=== PATIENT | female | born 1940 | race Caucasian/White ===

== ENCOUNTER 2016-10-09 07:33 | Emergency (ER) | payer MEDICARE, OTHER ==
[2016-10-09 07:50] VITALS: O2SAT 96
[2016-10-09] MEDS ORDERED: Sodium Chloride 0.9% 1000 ML 1,000 ML IV STA (07:52)
[2016-10-09] MEDS ORDERED: Sodium Chloride 0.9% 1000 ML 1,000 ML ONE ×2 (07:57→09:06)
--- NOTE | 2016-10-09 08:03 | ERPHSYRPT ---
- History of Present Illness Time Seen by Provider: 10/09/16 08:00 Source: patient, family, EMS Patient Subjective Stated Complaint: AWOKE THIS AM WITH DIAPHORESIS, WEAKNESS. BLACK STOOL THIS AM. Triage Nursing Assessment: TO ROOM PER EMS COT. SKIN W/D, PALE. RESP NONLABORED. ABD SOFT, NONTENDER. DENIES ANY PAIN. DOES HAVE SOME NAUSEA. Physician History: 76-year-old female with significant past medical history of hypertension. Was in her usual state of health at home. She went to bathroom and found to have a large amount of blood in her bowel movement and then she passed out. So her daughter called EMS and patient was brought into the emergency room. When patient was wanting to the emergency room. Patient was alert awake oriented to time, place and person and was denying any other symptoms but some weakness. This is the first episode of bleeding per rectum. Timing/Duration: today Associated Symptoms: denies symptoms Allergies/Adverse Reactions: adhesive tape Allergy (Intermediate, Verified 10/09/16 07:44) Rash latex Allergy (Intermediate, Verified 10/09/16 07:44) Rash Home Medications: Lisinopril/Hydrochlorothiazide [Lisinopril-Hctz 10-12.5 mg Tab] 20 mg PO BID 01/17 [History] Metoprolol Tartrate 25 mg [Lopressor 25MG Tab] 50 mg PO BID 08/12/12 [History ] Cholecalciferol (Vitamin D3) [Vitamin D-3] 2,000 unit PO DAILY 03/18/15 [History ] Fish Oil/Borage/Flax/Om3,6,9#1 [[place] 3-6-9 1,200 mg Softgel] 1,200 mg PO HS 07/21 [History] Multivits,Stress Formula [Stress Formula] 1 each PO DAILY 03/18/15 [History] Potassium Chloride [K-Dur] 20 meq PO DAILY 03/18/15 [History] Atorvastatin Calcium [Lipitor] 10 mg PO HS 10/09/16 [History] Magnesium Oxide 400 mg [Mag-Ox 400] 400 mg PO DAILY 10/09/16 [History] Nifedipine [Procardia Xl] 30 mg PO DAILY 10/09/16 [History] Rivaroxaban [Xarelto] 20 mg PO HS 03/05/17 [History] Hx Tetanus, Diphtheria Vaccination/Date Given: No Hx Influenza Vaccination/Date Given: Yes Hx Pneumococcal Vaccination/Date Given: Yes Immunizations Up to Date: No - Review of Systems Constitutional: No Fever, No Chills Eyes: No Symptoms Ears, Nose, & Throat: No Symptoms Respiratory: No Cough, No Dyspnea Cardiac: No Chest Pain, No Edema, No Syncope Abdominal/Gastrointestinal: Hematochezia, No Abdominal Pain, No Nausea, No Vomiting, No Diarrhea Genitourinary Symptoms: No Dysuria Musculoskeletal: No Back Pain, No Neck Pain Skin: No Rash Neurological: No Dizziness, No Focal Weakness, No Sensory Changes Psychological: No Symptoms Endocrine: No Symptoms All Other Systems: Reviewed and Negative - Past Medical History Pertinent Past Medical History: Yes Neurological History: No Pertinent History, Stroke ENT History: No Pertinent History Cardiac History: Arrhythmia, Coronary Artery Disease, Hypertension, Myocardial Infarction (AR) Respiratory History: No Pertinent History Endocrine Medical History: No Pertinent History Musculoskeletal History: No Pertinent History GI Medical History: No Pertinent History History: No Pertinent History Psycho-Social History: No Pertinent History Female Reproductive Disorders: No Pertinent History - Past Surgical History Past Surgical History: Yes Cardiac: Cardiac Catheterization Female Surgical History: Dilation & Curettage - Social History Smoking Status: Former smoker Exposure to second hand smoke: No Drug Use: none Patient Lives Alone: No - Female History Hx Now: No - Nursing Vital Signs Nursing Vital Signs: Initial Vital Signs Temperature 97.5 F Temperature Source Oral Pulse Rate 111 Respiratory Rate 16 Blood Pressure [Right Arm] 136/93 Pain Intensity 0 - Physical Exam General Appearance: no apparent distress, alert Eye Exam: PERRL/EOMI, eyes nml inspection Ears, Nose, Throat Exam: normal ENT inspection, TMs normal, pharynx normal, moist mucous membranes Neck Exam: normal inspection, non-tender, supple, full range of motion Respiratory Exam: normal breath sounds, lungs clear, No respiratory distress Cardiovascular Exam: regular rate/rhythm, normal heart sounds, normal peripheral pulses Gastrointestinal/Abdomen Exam: soft, normal bowel sounds, No tenderness, No mass Back Exam: normal inspection, normal range of motion, No CVA tenderness, No vertebral tenderness Extremity Exam: normal inspection, normal range of motion, pelvis stable Neurologic Exam: alert, oriented x 3, cooperative, normal mood/affect, nml cerebellar function, nml station & gait, sensation nml, No motor deficits Skin Exam: normal color, warm, dry, No rash Lymphatic Exam: No adenopathy SpO2: 96 Oxygen Delivery: Room Air - Course Nursing assessment & vital signs reviewed: Yes Ordered Tests: Active Orders 24 hr Category Date Time Status Deputy K 9 STAT Care 10/09/16 07:52 Active IV Insertion STAT Care 10/09/16 07:55 Active NPO (ED) STAT Care 10/09/16 07:52 Active cath [Cath for Specimen-Straight] STAT Care 10/09/16 08:26 Active CBC W DIFF Stat Lab 10/09/16 08:00 Completed CMP Stat Lab 10/09/16 08:00 Completed Lactic Acid Urgent Lab 10/09/16 07:52 Completed Occult Blood,Stool Other Stat Lab 10/09/16 08:00 Completed UA W/ MICROSCOPIC Stat Lab 10/09/16 09:00 Completed Medication Summary Generic Name Dose Route Start Last Admin Trade Name Freq PRN Reason Stop Dose Admin Sodium Chloride 2,000 mls @ 999 mls/hr 10/09/16 08:25 10/09/16 09:06 Sodium Chloride 0.9% 1000 Ml IV 10/09/16 10:25 999 mls/hr .Q2H1M STA Administration Levofloxacin/Dextrose 150 mls @ 100 mls/hr 10/09/16 08:27 10/09/16 08:40 Levofloxacin 750mg/150ml D5w IV 10/09/16 09:56 100 mls/hr STAT ONE Administration Discontinued Medications Generic Name Dose Route Start Last Admin Trade Name Freq PRN Reason Stop Dose Admin Sodium Chloride 1,000 mls @ 999 mls/hr 10/09/16 07:52 10/09/16 07:57 Sodium Chloride 0.9% 1000 Ml IV 10/09/16 08:52 999 mls/hr .Q1H1M STA Administration Sodium Chloride Confirm 10/09/16 07:57 Sodium Chloride 0.9% 1000 Ml Administered 10/09/16 07:58 Dose 1,000 mls @ ud .ROUTE .STK-MED ONE Levofloxacin/Dextrose Confirm 10/09/16 08:39 Levofloxacin 750mg/150ml D5w Administered 10/09/16 08:40 Dose 150 mls @ ud IV .STK-MED ONE Sodium Chloride Confirm 10/09/16 09:06 Sodium Chloride 0.9% 1000 Ml Administered 10/09/16 09:07 Dose 1,000 mls @ .ROUTE .STK-MED ONE Lab/Rad Data: Laboratory Result Diagrams 10/09/16 08:00 10/09/16 08:00 Laboratory Results 10/09/16 10/09/16 10/09/16 Range/Units 09:00 08:00 08:00 WBC 13.1 H (4.0-10.5) K/mm3 RBC 3.87 L (4.1-5.4) M/mm3 Hgb 11.8 L (12.0-16.0) gm/dl Hct 36.1 (35-47) % MCV 93.3 (78-100) fl MCH 30.4 (26-32) pg MCHC 32.7 (32-36) g/dl RDW 14.5 H (11.5-14.0) % Plt Count 247 (150-450) K/mm3 MPV 9.4 (6-9.5) fl Gran % 72.7 H (36.0-66.0) % Lymphocytes % 19.6 L (24.0-44.0) % Monocytes % 6.6 (0.0-12.0) % Eosinophils % 0.7 (0.00-5.0) % Basophils % 0.4 (0.0-0.4) % Basophils # 0.05 (0-0.4) Sodium 139 (136-145) mEq/L Potassium 4.0 (3.5-5.1) mEq/L Chloride 102 (98-107) mEq/L Carbon Dioxide 23.6 (21-32) mEq/L Anion Gap 17.0 H (5-15) MEQ/L BUN 63 H (9-20) mg/dL Creatinine 0.99 (0.55-1.30) mg/dl Estimated GFR 58 ML/MIN Glucose 144 H (70-110) MG/DL Lactic Acid (0.4-2.0) Calcium 8.7 (8.5-10.1) mg/dL Total Bilirubin 0.7 (0.2-1.0) mg/dL AST 18 (15-37) U/L ALT 13 (12-78) U/L Alkaline Phosphatase 56 (46-116) U/L Serum Total Protein 6.5 (6.4-8.2) gm/dL Albumin 3.2 L (3.4-5.0) g/dL Ur Collection Type CATH Urine Color YELLOW (YELLOW) Urine Appearance CLEAR (CLEAR) Urine pH 5.5 (5-6) Ur Specific [place] 1.025 (1.005-1.025) Urine Protein 30 (Negative) Urine Glucose (UA) NEGATIVE (NEGATIVE) mg/dL Urine Ketones SMALL-15 (NEGATIVE) Urine Nitrite NEGATIVE (NEGATIVE) Urine Bilirubin NEGATIVE (NEGATIVE) Urine Urobilinogen 0.2 (0-1) mg/dL Urine WBC (Auto) NEGATIVE (NEGATIVE) Urine RBC (Auto) NEGATIVE (0-5) Rishi/ul Stool Occult Blood (Negative) Specimen Received [id number] 10/09/16 10/09/16 Range/Units 08:00 07:52 WBC (4.0-10.5) K/mm3 RBC (4.1-5.4) M/mm3 Hgb (12.0-16.0) gm/dl Hct (35-47) % MCV (78-100) fl MCH (26-32) pg MCHC (32-36) g/dl RDW (11.5-14.0) % Plt Count (150-450) K/mm3 MPV (6-9.5) fl Gran % (36.0-66.0) % Lymphocytes % (24.0-44.0) % Monocytes % (0.0-12.0) % Eosinophils % (0.00-5.0) % Basophils % (0.0-0.4) % Basophils # (0-0.4) Sodium (136-145) mEq/L Potassium (3.5-5.1) mEq/L Chloride (98-107) mEq/L Carbon Dioxide (21-32) mEq/L Anion Gap (5-15) MEQ/L BUN (9-20) mg/dL Creatinine (0.55-1.30) mg/dl Estimated GFR ML/MIN Glucose (70-110) MG/DL Lactic Acid 3.1 H (0.4-2.0) Calcium (8.5-10.1) mg/dL Total Bilirubin (0.2-1.0) mg/dL AST (15-37) U/L ALT (12-78) U/L Alkaline Phosphatase (46-116) U/L Serum Total Protein (6.4-8.2) gm/dL Albumin (3.4-5.0) g/dL Ur Collection Type Urine Color (YELLOW) Urine Appearance (CLEAR) Urine pH (5-6) Ur Specific [place] (1.005-1.025) Urine Protein (Negative) Urine Glucose (UA) (NEGATIVE) mg/dL Urine Ketones (NEGATIVE) Urine Nitrite (NEGATIVE) Urine Bilirubin (NEGATIVE) Urine Urobilinogen (0-1) mg/dL Urine WBC (Auto) (NEGATIVE) Urine RBC (Auto) (0-5) Rishi/ul Stool Occult Blood POSITIVE (Negative) Specimen Received - Progress Progress: improved Discussed with : Cas Other (hospitalist service at [facility]) Will see patient in: hospital (observation), other Counseled pt/family regarding: lab results, diagnosis, need for follow-up - Departure Time of Disposition: 09:05 Departure Disposition: Transfer ([facility]) Clinical Impression: Acute lower GI bleeding, Lactic acid blood increased Leucocytosis Qualifiers: Leukocytosis type: unspecified Qualified Code(s): D72.829 - Elevated white blood cell count, unspecified Condition: Fair Critical Care Time: Yes Critical Care Time(excluding separately billable procedures): 30-74 minutes Referrals: DAX LAW [Primary Care Provider] -
[2016-10-09 08:19] LABS: BASOPHIL % 0.4 % (0.0-0.4); Eosinophil % 0.7 % (0.00-5.0); Granulocytes % 72.7 % (36.0-66.0); Lymphocytes % 19.6 % (24.0-44.0); Mean Cell Volume 93.3 fl (78-100); Mean Platelet Volume 9.4 fl (6-9.5); Monocytes % 6.6 % (0.0-12.0); Platelet Count 247 K/mm3 (150-450); Red Blood Count 3.87 M/mm3 (4.1-5.4); Red Cell Distribution Width 14.5 % (11.5-14.0); White Blood Count 13.1 K/mm3 (4.0-10.5)
[2016-10-09 08:20] LABS: Mean Corpuscular Hemoglobin 30.4 pg (26-32)
[2016-10-09] MEDS ORDERED: Sodium Chloride 0.9% 1000 ML 2,000 ML IV STA (08:25)
[2016-10-09] MEDS ORDERED: LEVOFLOXACIN 750MG/150ML D5W 150 ML IV ONE ×2 (08:27→08:39)
[2016-10-09 08:49] LABS: ALBUMIN 3.2 g/dL (3.4-5.0); BILIRUBIN,TOTAL 0.7 mg/dL (0.2-1.0); Carbon Dioxide 23.6 mEq/L (21-32); Total Protein 6.5 gm/dL (6.4-8.2)
[2016-10-09 09:27] LABS: COMPLETE URINE MICROSCOPIC? YES; Collection Type CATH; Ph 5.5 (5-6)
[2016-10-09 09:34] LABS: Bacteria FEW /HPF (NEGATIVE); Epithelial Cells FEW /HPF (FEW); Mucus SLIGHT /HPF (NEGATIVE)
[2016-10-09 09:43] VITALS: BP 131/65; PULSE 113
== END 2016-10-09 10:17 | disposition short-term general hospital (02) ==
LOC: ED 07:33
DX: K92.2 Gastrointestinal hemorrhage, unspecified (principal); D72.829 Elevated white blood cell count, unspecified; I25.2 Old myocardial infarction; I10 Essential (primary) hypertension; Z79.899 Other long term (current) drug therapy
CPT/HCPCS: 93041; 96365; 99285; 96360; 96361; 81000; 36415; 82272; 85025; 80053; 86850; 86900; 86901; 86922; 83605; P9612; 36000; J1956